=== PATIENT | male | born 1950 | race Caucasian/White ===

== ENCOUNTER → 2018-09-30 17:48 | Emergency (ER) | payer MEDICARE, OTHER ==
--- OUTSIDE RECORDS SUMMARY | 2018-09-30 18:01 | XMS REPORT | Continuity of Care Document ---
:1950 External Reference #:[id number] Author Name Tru Oro M.D. Address [address] [place] [address] Care Team Providers Name Role Phone Tru Machuca M.D. Care Team Information Ladle Operator Unavailable Tru Machuca M.D. Primary Care Physician Unavailable Payers Type Date Identification Numbers Payment Provider Subscriber Policy Number: [id number] [place] [employer] [employer] Christian Tiwari PayID: [id number] 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 Tobacco Use Start: Unknown End: Former Cigarette Smoker Unknown Packs Daily 2 Tobacco Use Start: Unknown ,Quit 23 Yrs Ago Tobacco Use Start: Unknown has never smoked cigars Tobacco Use Start: Unknown has never smoked a pipe Smokeless Tobacco has never used smokeless tobacco ETOH Use Current Alcohol Use Occasionally Tobacco Use Start: Unknown End: Patient is a former Unknown smoker Smoking Status Reviewed: 09/03/18 Patient is a former smoker Allergies, Adverse Reactions, Alerts Description No Known Drug Allergies Medications Medication Date Status Form Strength Qnty SIG Indications Ordering Provider Vitamin D / Active Capsules [id number] Unknown (Ergocalcifero 0000 l) Diltiazem HCL / Active Tablets 120mg take once Lukelow, 0000 daily with Hammad alas M.D. Digoxin / Active Tablets 125mcg Breiman, 0000 Tru Skinner M.D. Xarelto / Active Tablets 20mg 1 by mouth Darlow, 0000 every day Hammad De Jesus Atorvastatin / Active Tablets 20mg 1 po qd Darnikolay, Calcium 0000 Hammad De Jesus Alprazolam / Active Tablets 0.5mg one by Darlow, 0000 Dispers mouth as Hammad needed up M.D. to 4 x daily. Amitiza / Active Capsules 8mcg Darlow, 0000 Hammad De Jesus Colcrys 06/04/ Hx Tablets 0.6mg 20tabs Brigette, 2012 - Tru 09/03Tianna Skinner M.D. 2018 Ambien 01/04/ Hx Tablets 10mg 30tabs 780.52 Brigette, 2009 - Tru Roel Skinner M.D. 2018 Cardizem CD 08/08/ Hx Caps ER 240mg Unknown 2007 - 24HR 2017 Alprazolam 01/07/ Hx Tablets 0.5mg 60tabs Brigette, 2007 - Tru 09/03Tianna Skinner M.D. 2018 Nelly 12/16/ Hx Tablets 180mg 1 po qd Anisa 2006 - Vince, 09/03/ [employer]-C 2018 Allergen 11/30/ Hx Unknown 2005 - 2005 Rhinocort 11/30/ Hx Unknown Nasal 2006 - Inhalation 2017 Nelly / Hx Tablets 180mg 30tabs 1 po qd prn Anisa 0000 - allergies Vince, 12/16/ [employer]-C 2005 Vitamin C / Hx Chewtabs 250mg Unknown - 2017 Vitamin D3 / Hx Tablets 400Unit Unknown - 2017 Fish Oil / Hx Capsules 1000mg Unknown - 2017 Glucosamine / Hx Capsules 500-400mg Unknown Chondroitin 0000 - Complex 2017 Lanoxin / Hx Tablets 125mcg 90tabs Unknown 2017 Xarelto / Hx Tablets 15mg Unknown 2017 Immunizations Description No Information Available Vital Signs Date Vital Result Comment 09/04/2018 2:47pm Weight 210.00 lb Weight 95.256 kg Height 70 inches 5'10" Height in cm's 177.8 cm BMI (Body Mass Index) 30.1 kg/m2 12/01/2005 10:38am BP Systolic 143 mmHg BP Diastolic 91 mmHg Heart Rate 75 /min Respiratory Rate 16 /min Results Description No Information Available Procedures Description No Information Available Encounters Type Date Location Provider Dx Diagnosis Office Visit 09/04/2018 [place] Tru Rodrigues A88.1 Epidemic vertigo 2:30p 10/02/07 Liza Oro H81.10 Benign paroxysmal vertigo, unspecified ear R09.82 Postnasal drip Office Visit 12/01/2005 [place] Tru Rodrigues 473.0 Sinusitis, 10:30a 10/02/07 Liza Oro 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 We reviewed what BPPV is. But I am not sure this is what has caused his dizziness when he stands up. He is being treated for atrial fibrillation, and a bigger concern is that this is from orthostatic hypotension leading to cerebral hypoperfusion and the development of dizziness or vertigo.. It can all feels the same.He is doing ok right now but the nexttime this happens he needs to check his B/P and monitor it. He says his PCP and Dr. Conley have beenfollowing it and it has bene ok. It is when he is symptomatic that it needs to be checked.H81.10 Benign paroxysmal vertigo, unspecified earR09.82 Postnasal dripComments:The patient has postnasal drip. We normally just drink this without noticing it. But as we age andespecially if we are put on high blood pressure medications it becomes more noticeable. There is nothing definitive to try but antihistamine nasal spray, steroid nasal spray or antimuscarinic nasal spray. I could also perform the Clarifix procedure. We discussed what that is. At this point he does not want to try anything.
--- NOTE | 2018-09-30 19:39 | ED ---
Back Pain - HPI Summary HPI Summary: 68-year-old male presents with left sided rib and back pain today. States he was carrying a TV when he slipped and fell with his left side. the son who was holding the other end of the TV made it so the TV did not fall on him. He denies any hip pain. He is able to ambulate. He admits to shortness of breath. Start pain starts posterior aspect of his shoulder and goes down to above his hip. States it hurts greatest when he takes deep breath. Has history of A. fib and is on xarelto. He states he has severe anxiety. Denies any head injury or neck pain. No loss consciousness. No other injury. fall was mechanical fall. Denies any chest pain or shortness of breath prior to the fall. - History of Current Complaint Chief Complaint: EDBackInjuryPain Stated Complaint: FALL/BACK PAIN Time Seen by Provider: 09/30/18 18:02 Pain Intensity: 7 - Allergies/Home Medications Allergies/Adverse Reactions: Allergies Allergy/AdvReac Type Severity Reaction Status Date / Time No Known Allergies Allergy Verified 01/31/14 10:47 PMH/Surg Hx/FS Hx/Imm Hx Endocrine/Hematology History: Reports: Hx Anticoagulant Therapy Denies: Hx Diabetes Cardiovascular History: Reports: Hx Atrial Fibrillation, Hx Hypercholesterolemia Denies: Hx Angina, Hx Congestive Heart Failure, Hx Coronary Artery Disease, Hx Hypertension, Hx Myocardial Infarction, Hx Pacemaker/ICD, Other Cardiovascular Problems/Disorders Respiratory History: Reports: Other Respiratory Problems/Disorders - FX RIBS 13 MONTHS AGO UNSURE WHICH SIDE Denies: Hx Asthma, Hx Chronic Obstructive Pulmonary Disease (COPD) GI History: Reports: Hx Irritable Bowel, Other GI Disorders - llq pain Musculoskeletal History: Reports: Hx Arthritis - HIPS, Hx Tendonitis Denies: Hx Rheumatoid Arthritis, Hx Osteoporosis, Hx Scoliosis Sensory History: Reports: Hx Cataracts - BILAT, Hx Contacts or Glasses - GLASSES Denies: Hx Hearing Aid Opthamlomology History: Reports: Hx Cataracts - BILAT, Hx Contacts or Glasses - GLASSES Neurological History: Denies: Hx Headaches, Other Neuro Impairments/Disorders Psychiatric History: Reports: Hx Anxiety - Surgical History Surgery Procedure, Year, and Place: right hip,right knee Hx Anesthesia Reactions: No Infectious Disease History: No Infectious Disease History: Denies: Traveled Outside the [place] in Last 30 Days - Family History Known Family History: Positive: Non-Contributory - Social History Alcohol Use: Occasionally Alcohol Amount: 6-10 WEEK WINE Substance Use Type: Reports: None Hx Tobacco Use: Yes Smoking Status (MU): Former Smoker Type: Cigarettes Amount Used/How Often: 2 PPD FOR 20 YRS Length of Time of Smoking/Using Tobacco: 20 YRS Have You Smoked in the Last Year: No Review of Systems Negative: Fever Positive: Chest Pain - left side rib pain Positive: Shortness Of Breath Positive: Myalgia - back pain All Other Systems Reviewed And Are Negative: Yes Physical Exam Triage Information Reviewed: Yes Vital Signs On Initial Exam: Initial Vitals Temp Pulse Resp BP Pulse Ox 97.4 F 95 20 171/123 97 09/30/18 17:57 09/30/18 17:57 09/30/18 17:57 09/30/18 17:57 09/30/18 17:57 Vital Signs Reviewed: Yes Appearance: Positive: Well-Appearing Skin: Positive: Warm, Dry Head/Face: Positive: Normal Head/Face Inspection Eyes: Positive: Normal, EOMI, JANIE, Conjunctiva Clear ENT: Positive: Normal ENT inspection, Pharynx normal, TMs normal Respiratory/Lung Sounds: Positive: Clear to Auscultation, Breath Sounds Present , Other - tenderness lower ribs left side Cardiovascular: Positive: Normal, RRR Abdomen Description: Positive: Nontender, Soft Bowel Sounds: Positive: Present Musculoskeletal: Positive: Strength/ROM Intact - back, Other - tenderness left side of lower back, good pulses Neurological: Positive: Normal Psychiatric: Positive: Normal Diagnostics - Vital Signs Vital Signs Temp Pulse Resp BP Pulse Ox 09/30/18 17:57 97.4 F 95 20 171/123 97 - Laboratory Result Diagrams: 09/30/18 19:36 09/30/18 19:35 Lab Statement: Any lab studies that have been ordered have been reviewed, and results considered in the medical decision making process. - Radiology rib Radiology Interpretation Completed By: ED Physician Summary of Radiographic Findings: rib fracture 07-12 back Radiology Interpretation Completed By: ED Physician Summary of Radiographic Findings: degenerative changes Re-Evaluation - Re-Evaluation First Eval Re-Evaluation Time: 19:39 Comment: patient states can not do a CT unless consciously sedation Second Eval Re-Evaluation Time: 20:15 Comment: discussed and patient still refusing CT. discussed with dr lucas and said as long as o2 stats okay that patient Back Pain Course/Dx - Course Course Of Treatment: 68-year-old male presents with left sided rib and back pain today. States he was carrying a TV when he slipped and fell on his left side. He is able to ambulate. He admits to shortness of breath. Start pain starts posterior aspect of his shoulder and goes down to above his hip. Has history of A. fib and is on xarelto. He states he has severe anxiety. fall was mechanical fall. On exam tenderness over left ribs and left lower back. Lungs clear to auscultation. Nontender neck. Nontender over left shoulder and left hip. Neurovascularly intact. wanted to get a CT scan due to being on blood thinners but patient declined due to anxiety. when x-ray shows that has 2 rib fractures, discussed again with the patient about getting a CT and patient again declined saying only if he was consciously sedating. Offered to give Ativan patient said that is not strong enough. Situation does not justify conscious sedation. Discussed with Dr. Lucas and says as has O2 Sats have been maintained can discharge home with strict return precautions. Gave strict return precautions. Gave Incentive Spirometer to use. gave pain medication. told to follow up with primary. patient understand and agrees with plan. - Diagnoses Differential Diagnosis/HQI/PQRI: Positive: Fracture, Herniated Disc, Other - contusion Provider Diagnoses: Rib fractures, Back pain, Fall Discharge - Sign-Out/Discharge Documenting (check all that apply): Patient Departure - Discharge Plan Condition: Good Disposition: HOME Prescriptions: Docusate CAP* [Colace Cap*] 100 mg PO DAILY #7 cap oxyCODONE/Acetamin 5/325 MG* [Percocet 5/325 TAB*] 1 - 2 tab PO Q6H PRN #20 tab MDD 8 PRN Reason: Pain Patient Education Materials: Rib Fracture (ED) Referrals: Tru Machuca MD [Primary Care Provider] - Additional Instructions: Return to ED if develop worsening shortness of breath, productive cough, fever, urinating blood or any new or worsening symptoms Take up to two tablets percocet every 6 hours, take tyenlol every 6 hours as needed for pain Take deep breaths through the day, use spirometer every couple hours take colace once a day to prevent constipation caused by pain medication place ice on the area Follow up with primary within 7 days - Billing Disposition and Condition Condition: GOOD Disposition: Home
[2018-09-30 19:51] LABS: ABS Basophils 0 10^3/ul (0-0.2); ABS Eosinophils 0.2 10^3/ul (0-0.6); ABS Lymphocytes 1.4 10^3/ul (1.0-4.8); ABS Monocytes 0.6 10^3/ul (0-0.8); ABS Nucleated RBC 0 10^3/ul; Eosinophil % 2.1 %; Hematocrit 46 % (42-52); Hemoglobin 16.3 g/dl (14.0-18.0); Lymphocyte % 16.9 %; Mean Corpuscular HGB Conc 35 g/dl (31-36); Mean Corpuscular Hemoglobin 34 pg (27-31); Mean Corpuscular Volume 95 fL (80-94); Mean Platelet Volume 6.9 fL (7.4-10.4); Nucleated Red Blood Cells % 0.1; Platelet Count 254 10^3/ul (150-450); Red Blood Count 4.86 10^6/ul (4.00-5.40); Red Cell Distribution Width 14 % (10.5-15); White Blood Count 8.2 10^3/ul (3.5-10.8)
[2018-09-30 20:02] LABS: INR 1.1 (0.77-1.02)
[2018-09-30 20:05] LABS: Albumin 4.8 g/dL (3.2-5.2); BUN/Creatinine Ratio 14.3 (8-20); EGFR Non-African American 111.5 (>60); Globulin 2.8 g/dL (2-4); Potassium 4.7 mmol/L (3.5-5.0); Total Protein 7.6 g/dL (6.4-8.9)
[2018-09-30 20:06] LABS: Albumin/Globulin Ratio 1.7 (1-3)
[2018-09-30] MEDS: oxyCODONE TAB* 5 MG TAB PO ONE (20:29)
[2018-09-30 21:24] VITALS: BP 128/89
== END | disposition home or self-care (01) ==
LOC: ED 17:48
DX: S22.42XA Multiple fractures of ribs, left side, initial encounter for closed fracture (principal); M54.9 Dorsalgia, unspecified; F41.9 Anxiety disorder, unspecified; Z87.891 Personal history of nicotine dependence; W19.XXXA Unspecified fall, initial encounter; Y93.89 Activity, other specified; Y92.9 Unspecified place or not applicable; I48.91 Unspecified atrial fibrillation; Z79.01 Long term (current) use of anticoagulants; E78.00 Pure hypercholesterolemia, unspecified
CPT/HCPCS: 36415; 72110; 80053; 85025; 85610; 99283; A9270-GY